=== PATIENT | female | born 1970 | race Caucasian/White ===

== ENCOUNTER 2019-02-16 16:32 | Emergency (ER) | payer OTHER ==
[~2019-02-16] VITALS: Ht 167.6 cm; Wt 77.1 kg
--- NOTE | 2019-02-16 16:48 | NUR ---
PT AAOX4. [employer] C/O CHEST PAIN THAT IS RADIATING TO ARMS. PT STATES CP IS 3/10 DULL AT THE MOMENT. RR EVEN AND UNLABORED. NO ACUTE DISTRESS NOTED. PLACED ON MONITOR AND PULSE OX. NO NEURO DEFICIT.
[2019-02-16] MEDS ORDERED: ASPIRIN 325 MG TABLET ONE (17:19)
[2019-02-16] MEDS ORDERED: NITROGLYCERIN PACKET 1 GM PACKET ONE (17:19)
[2019-02-16 17:26] LABS: BASOPHILS % (AUTO) 0.5 % (0.0-2.0); EOSINOPHILS % (AUTO) 1.3 % (0.0-6.0); HEMATOCRIT 45 % (33-45); HEMOGLOBIN 15.4 g/dL (11.5-14.8); LYMPHOCYTES % (AUTO) 29.7 % (20.0-44.0); MEAN CORPUSCULAR HGB CONC 34 g/dl (31.0-36.0); MEAN CORPUSCULAR VOLUME 86 fL (82-100); MONOCYTES # (AUTO) 0.9 /CMM (0.1-1.30); MONOCYTES % (AUTO) 9.4 % (2.0-12.0); NEUTROPHILS # (AUTO) 5.9 /CMM (1.8-8.9); NEUTROPHILS % (AUTO) 59.1 % (43.0-81.0); PLATELET COUNT (AUTO) 235 /CMM (150-450); RED BLOOD CELL COUNT(AUTO) 5.28 MIL/uL (4.0-5.2)
[2019-02-16] MEDS ORDERED: LORAZEPAM INJ 2 MG/ML VIAL ONE (17:26)
[2019-02-16] MEDS ORDERED: ASPIRIN 325 MG TABLET PO ONE (17:30)
[2019-02-16] MEDS ORDERED: LORAZEPAM INJ 2 MG/ML VIAL IV ONE (17:30)
[2019-02-16] MEDS ORDERED: NITROGLYCERIN PACKET 1 GM PACKET TD ONE (17:30)
[2019-02-16] MEDS ORDERED: IV NS 0.9% 1,000 ML BAG IV ONE (17:30)
--- NOTE | 2019-02-16 17:30 | NUR ---
Patient is resting comfortably in bed speaking to [employer]. Easily aroused. VSS.
[2019-02-16 17:36] LABS: CALCIUM, SERUM 9.5 mg/dL (8.5-10.1); CARBON DIOXIDE 28 mmol/L (21-32); CHLORIDE 107 mmol/L (98-107); CREATININE 0.8 mg/dL (0.6-1.3); GLUCOSE 90 mg/dL (74-106); SODIUM SERUM 143 mmol/L (136-145); UREA NITROGEN, BLOOD 9 mg/dL (7-18)
--- NOTE | 2019-02-16 18:15 | NUR ---
PT RESTING COMFORTABLY. EASILY AROUSED.
--- NOTE | 2019-02-16 19:06 | NUR ---
PT AMBULATED TO THE RESTROOM.
--- NOTE | 2019-02-16 19:12 | NUR ---
URINE COLLECTED AND SENT TO LAB
[2019-02-16 19:17] LABS: APPEARANCE,URINE Slightly Cloudy (CLEAR); BILIRUBIN,URINE Negative (NEGATIVE); BLOOD, URINE Trace-intact Ery/uL (NEGATIVE); COLOR,URINE Yellow (YELLOW); KETONES,URINE 15 (NEGATIVE); LEUKOCYTE ESTERASE ,URINE Negative (NEGATIVE); NITRITE, URINE Negative (NEGATIVE); PROTEIN,URINE Negative (NEGATIVE); UGLUCOSE Negative (NEGATIVE); UROBILINOGEN,URINE 0.2 EU/dL (0.2)
[2019-02-16 19:23] LABS: BACTERIA,URINE Few /HPF (None Seen); SQUAMOUS EPITHELIAL CELL,UR Few /HPF (None Seen); URINE AMORPHOUS URATE Moderate /HPF (None Seen); WBC,URINE 0-2 /HPF (0-3)
--- NOTE | 2019-02-16 19:50 | NUR ---
PT RESTING COMFORTABLY. [employer] AT BEDSIDE
--- NOTE | 2019-02-16 21:19 | NUR ---
PT MEDICALLY CLEARED. Patient discharged to home in stable condition. Written and verbal after care instructions given. Patient verbalizes understanding of instruction. IV removed. Catheter intact and site benign. Pressure and 4x4 applied to site. No bleeding noted.PT ambulatory with a steady gait.
[2019-02-16 21:28] VITALS: BP 126/89
== END 2019-02-16 21:28 ==
LOC: ER 16:40
DX: R07.89 Other chest pain (principal); I10 Essential (primary) hypertension; I25.2 Old myocardial infarction; J45.909 Unspecified asthma, uncomplicated; Z88.1 Allergy status to other antibiotic agents
CPT/HCPCS: 36415; 71045; 80048; 80305; 81001; 84484 ×2; 84703; 85025; 93005 ×3; 96374; 99284; J2060; J7030; 81000-TC